=== PATIENT | female | born 1995 ===

== ENCOUNTER 2017-01-25 11:39 | Emergency (ER) | payer SELFPAY ==
[2017-01-25 11:56] VITALS: RESP 18; TEMP 98
[2017-01-25] MEDS ORDERED: Sodium Chloride 0.9% 1,000 ML IV STA (12:34)
--- NOTE | 2017-01-25 12:37 | ED PDOC ---
HPI: Female Pain Time Seen by Provider: 01/25/17 12:35 Chief Complaint (Nursing): Female Genitourinary Chief Complaint (Provider): abdominal pain/headache History Per: Patient (21 y/o female A1 Approximately 16 week gestation here with complaint of vomiting x 3 days now associated with abdominal pain and headache x 1 day. Denies any fevers/dysuria. Notes pink tinged vaginal discharge. Patient has been prescribed unisom/vit B12 without relief of vomiting.) Past Medical History Reviewed: Historical Data, Nursing Documentation, Vital Signs Vital Signs: Last Vital Signs Temp 98 F 01/25/17 11:54 Pulse 88 01/25/17 11:54 Resp 18 01/25/17 11:54 BP 112/70 01/25/17 11:54 Pulse Ox 99 01/25/17 11:54 - Medical History PMH: Asthma - Surgical History Surgical History: Appendectomy - Family History Family History: States: No Known Family Hx - Home Medications Home Medications: Ambulatory Orders Medication Instructions Recorded Nitrofurantoin Macrocrystals 100 mg PO BID #14 cap 11/21/16 [Macrobid] Metoclopramide HCl [Reglan] 10 mg PO Q8 PRN #10 tablet 01/25/17 - Allergies Allergies/Adverse Reactions: Allergies Allergy/AdvReac Type Severity Reaction Status Date / Time No Known Allergies Allergy Verified 01/25/17 11:54 Review of Systems ROS Statement: Except As Marked, All Systems Reviewed And Found Negative Gastrointestinal: Positive for: Vomiting, Abdominal Pain Physical Exam - Reviewed Nursing Documentation Reviewed: Yes Vital Signs Reviewed: Yes - Physical Exam Appears: Positive for: Well, Non-toxic, No Acute Distress Head Exam: Positive for: ATRAUMATIC, NORMAL INSPECTION, NORMOCEPHALIC Skin: Positive for: Normal Color, Warm, DRY Eye Exam: Positive for: EOMI, Normal appearance, PERRL ENT: Positive for: Normal ENT Inspection Neck: Positive for: Normal, Painless ROM Cardiovascular/Chest: Positive for: Regular Rate, Rhythm Respiratory: Positive for: CNT, Normal Breath Sounds Gastrointestinal/Abdominal: Positive for: Normal Exam, Bowel Sounds, Soft Pelvic Exam: Positive for: Other (Cervix closed. No blood noted in vaginal canal.) Back: Positive for: Normal Inspection Extremity: Positive for: Normal ROM Neurologic/Psych: Positive for: Alert, Oriented - Laboratory Results Result Diagrams: 01/25/17 12:35 01/25/17 12:35 - ECG O2 Sat by Pulse Oximetry: 99 - Progress ED Course And Treament: zofran 4 mg iv x 1 dose reglan 10 mg iv x 1 dose NS 1 liter wide open D51/2 NS 500 ml per hour x 1 liter US: Impression: Single living fetus with a composite sonographic age of 16 weeks 2 days. Estimated heart rate 149.2 beats per min. Advise an outpatient anomaly screen at 16-18 weeks gestational age. Disposition - Clinical Impression Clinical Impression: Hyperemesis gravidarum - Patient ED Disposition Is Patient to be Admitted: No - Disposition Disposition: Routine/Home Disposition Time: 17:55 Condition: FAIR Prescriptions: Metoclopramide HCl [Reglan] 10 mg PO Q8 PRN #10 tablet PRN Reason: Nausea/Vomiting Instructions: Hyperemesis Gravidarum (ED) Forms: [facility] ED School/Work Excuse Print Language: AZERBAIJANI
[2017-01-25 12:45] LABS: BASO % 0.4 % (0.0-2.0); EOS # 0.1 K/uL (0.0-0.7); EOS % 0.5 % (0.0-4.0); HEMATOCRIT 37.5 % (34.0-47.0); LYMPH % 18.7 % (20.0-40.0); MEAN CELL VOLUME 82.3 fl (81.0-99.0); MEAN CORPUSCULAR HEMOGLOBIN 29.2 pg (27.0-31.0); MEAN CORPUSCULAR HGB CONC 35.5 g/dL (33.0-37.0); MEAN PLATELET VOLUME 9.5 fl (7.2-11.7); MONO # 0.4 K/uL (0.0-0.8); NEUT # 8.2 K/uL (1.8-7.0); NEUT % 76.4 % (50.0-75.0); NRBC % 0.1 % (0.0-0.0); RED CELL DISTRIBUTION WIDTH 12.9 % (11.5-14.5); WHITE BLOOD COUNT 10.8 K/uL (4.8-10.8)
[2017-01-25] MEDS ORDERED: Dextrose 5%/0.45% NS 1,000 ML IV SCH (12:45)
[2017-01-25 13:11] LABS: ALKALINE PHOSPHATASE 64 U/L (38-126); ALT/SGPT 27 U/L (9-52); AST/SGOT 29 U/L (14-36); BILIRUBIN,TOTAL 0.6 mg/dl (0.2-1.3); BLOOD UREA NITROGEN 8 mg/dl (7-17); CALCIUM 10.1 mg/dL (8.4-10.2); CARBON DIOXIDE 23 mmol/L (22-30); CHLORIDE 103 mmol/L (98-107); GFR AFRICAN-AMERICAN > 60; GLUCOSE,RANDOM 84 mg/dL (65-105); POTASSIUM 3.7 MMOL/L (3.6-5.0); SODIUM 142 mmol/l (132-148); TOTAL PROTEIN 8.2 G/DL (6.3-8.2)
--- NOTE | 2017-01-25 16:39 | US ---
OB , limited Comparison: Ob transvaginal ultrasound performed 11/21/16 Technique: Real-time ultrasound was performed through the pelvis. Findings: There is a single living fetus in variable presentation. Anterior placenta. The placenta is not previa. Bilateral ovaries are not identified. There are no adnexal masses or cysts evident. Cervix length measures approximately 4.2 cm. Measurements and calculations: Fetus has a composite sonographic age of 16 weeks 2 days. This calculation is based on the biparietal diameter, head circumference, abdominal circumference, and femur length. Estimated heart rate 149.2 beats per min. Impression: Single living fetus with a composite sonographic age of 16 weeks 2 days. Estimated heart rate 149.2 beats per min. Advise an outpatient anomaly screen at 16-18 weeks gestational age.
[2017-01-25 18:21] VITALS: BP 114/60; PULSE 85; O2SAT 100
== END 2017-01-25 18:21 | disposition home or self-care (01) ==
LOC: H.ER 11:39
DX: O21.0 Mild hyperemesis gravidarum (principal); R10.9 Unspecified abdominal pain; Z3A.16 16 weeks gestation of pregnancy; R51 Headache; J45.909 Unspecified asthma, uncomplicated

== ENCOUNTER → 2017-03-20 | Emergency (ER) | payer SELFPAY ==
[2017-03-21 00:42] VITALS: BMI 31.5
--- NOTE | 2017-03-21 02:21 | OBHP ---
Datetime: 03/21/2017 02:16 IP Adm Impression: , intrauterine ; No Active Labor; Intact Membranes IP Admit Plan: Observation/Evaluation Admit Comment, IP Provider: 22-year-old at 23 weeks and 6 days gestational age presents to the ED complaining of leakage of fluids. Patient denies any contractions or vaginal bleeding. Patient reports good movement. Otherwise, patient without complaints. Past medical history asthma Past surgical history none Medications vitamins No known drug allergies Obstetrical history normal spontaneous vaginal delivery 1, spontaneous loss of at 19 w eeks Social history no tobacco, no alcohol, no drugs Physical exam: Deferred physical exam findings Assessment: 22-year-old 0-1 at 23 weeks gestational age. No evidence on physical exam of rupture of memb ranes. No evidence of labor at this time. Maternal well-being and well-being reassuring at this time. Plan: Check ultrasound for AMANDA and cervical length. If ultrasound normal, plan to discharge home. Pelvic Type - PN: Adequate Extremities - PN: Normal Abdomen - PN: Normal Back - PN: Normal Breast - PN: Normal Lungs - PN: Normal Heart - PN: Normal Thyroid - PN: Normal Neurologic - PN: Normal HEENT - PN: Normal General - PN: Normal FHR - Baseline A Provider: 130s-140s Membranes, Provider: Intact Contraction Comments Provider: none Comments, ACOG Physical Exam: Cervix long, closed, posterior. No fluid, blood, discharge. Pool Provider: Negative EGA AdmitDate IP: 23.6 IP Chief Complaint: Suspected ruptured membranes NICHD Variability Prov Fetus A: Moderate 6-25bpm NICHD Decel Fetus A IP Provider: None Dilatation, Provider: 0 Effacement, Provider: 0 Station, Provider: -4 Genitourinary Exam: Normal DTRs - PN: Normal
--- NOTE | 2017-03-22 00:16 | US ---
EXAM: US After First Trimester, Transabdominal CLINICAL HISTORY: 22 years old, female; Signs and symptoms; Lmp or gestational age (in weeks): Lmp 10/05/2016; Other: Pt felt like water broke; ; abdominal pain and cramping Additional info: Basic ob sono with amanda and cervical length TECHNIQUE: Real-time transabdominal obstetrical ultrasound of the maternal pelvis and a second or third trimester with image documentation. EXAM DATE/TIME: 03/21/2017 12:45 AM COMPARISON: Prior images are not available for review. FINDINGS: Fetus: There is a single intrauterine gestation in variable presentation. There is a heart rate of 134 beats per minute. Placenta: Placenta is anterior. There is no previa. There is a three-vessel cord. Amniotic fluid: Amnionic fluid volume appears normal. Amniotic fluid index measures 13.39 cm. Anatomy: Anatomic survey was not performed BIOMETRICS Gestational age by US: 23 weeks 2 days EFW: 559 g BPD: 5.85 cm, 24 weeks 0 days HC: 20.42 cm, 22 weeks 4 days AC: 17.20 cm, 22 weeks 1 day FL: 4.34 cm, 24 weeks 2 days MATERNAL: Cervix: Cervix is closed. Cervix measures approximately 5.3 cm. IMPRESSION: 23 week 2 day single variable position fetus, estimated date of delivery 07/16/17; normal amniotic fluid volume and AMANDA; closed cervix
== END | disposition home or self-care (01) ==
LOC: H.EROB2 23:41
DX: O47.02 False labor before 37 completed weeks of gestation, second trimester (principal); Z3A.24 24 weeks gestation of pregnancy; O09.292 Supervision of pregnancy with other poor reproductive or obstetric history, second trimester

== ENCOUNTER 2017-04-25 21:26 | Emergency (ER) | payer SELFPAY ==
[2017-04-25 18:07] VITALS: BMI 31.7
[2017-04-25 18:37] LABS: SQUAMOUS EPITHIAL 12 /hpf (0-5); URINE BACTERIA RARE (<OCC); URINE BILIRUBIN NEGATIVE (NEGATIVE); URINE BLOOD NEGATIVE (NEGATIVE); URINE CLARITY CLOUDY (Clear); URINE COLOR YELLOW (YELLOW); URINE GLUCOSE (UA) NEG (Normal); URINE LEUKOCYTE ESTERASE SMALL Leu/uL (Negative); URINE NITRATE NEGATIVE (NEGATIVE); URINE PROTEIN 30 mg/dL (NEGATIVE); URINE UROBILINOGEN 0.2-1.0 mg/dL (0.2-1.0)
--- NOTE | 2017-04-25 20:18 | US ---
EXAM: US Biophysical Profile Without Non-Stress Testing CLINICAL HISTORY: 22 years old, female; Signs and symptoms; Other: As per pt. Decrease movement; ; Additional info: Decrease movements. Iup 28.6 weeks TECHNIQUE: Real-time ultrasound of the maternal pelvis for biophysical profile evaluation with image documentation. EXAM DATE/TIME: 04/25/2017 6:08 PM COMPARISON: No relevant prior studies available. FINDINGS: Single fetus identified, cephalic position. Sonographic gestational age was not calculated. The given gestational age is reportedly 28 weeks, 6 days. heart motion visualized, at 140 beats/min. The anatomy was not assessed on this exam. Anterior location of the placenta. AMANDA is 14.2 cm, which is between the 5th and 95th percentile for the given gestational age. Cervical length is 4.6 cm (normal greater than 3 cm), measured transabdominally. Biophysical profile score was 8/8, with 2 points given for tone, 2 points given for movement, 2 points given for breathing, and 2 points given for amniotic fluid. IMPRESSION: Intrauterine with heart motion. No acute abnormality identified on this limited exam. Biophysical profile score of 8/8. See above for remaining findings.
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
[~2017-04-25 21:26] MED LIST: Lactated Ringer's 1,000 ML IV SCH
[2017-04-25 21:48] VITALS: BP 100/60; PULSE 74; RESP 18; TEMP 99; O2SAT 99
--- NOTE | 2017-04-25 22:02 | ED PDOC ---
HPI: CCC, URI, Sore Throat Time Seen by Provider: 04/25/17 21:49 Chief Complaint (Nursing): ENT Problem Chief Complaint (Provider): Right ear ache History Per: Patient History/Exam Limitations: no limitations Onset/Duration Of Symptoms: Hrs Additional Complaint(s): Patient is a 22 year old female presenting to the emergency department for right ear ache that developed today. Denies headache, fever, sore throat, headache, vaginal bleeding and pelvic pain. Of note, patient is currently and was evaluated in OB ED prior to coming to main ED where she was given a dose of Tylenol for her pain. PCP: none provided. Past Medical History Reviewed: Historical Data, Nursing Documentation, Vital Signs Vital Signs: Last Vital Signs Temp 99 F 04/25/17 21:43 Pulse 74 04/25/17 21:43 Resp 18 04/25/17 21:43 BP 100/60 04/25/17 21:43 Pulse Ox 99 04/25/17 22:14 - Medical History PMH: Asthma - Surgical History Surgical History: Appendectomy - Family History Family History: States: Unknown Family Hx - Social History Current smoker - smoking cessation education provided: No Alcohol: None Drugs: Denies - Home Medications Home Medications: Ambulatory Orders Medication Instructions Recorded Amoxicillin [Amoxil 500 mg Cap] 500 mg PO Q8 #30 cap 04/25/17 123/Iron/Folic/Omeg3s 1 tab PO DAILY 04/25/17 [One-A-Day 1 Dha Sfgl] - Allergies Allergies/Adverse Reactions: Allergies Allergy/AdvReac Type Severity Reaction Status Date / Time No Known Allergies Allergy Verified 01/25/17 11:54 Review of Systems ROS Statement: Except As Marked, All Systems Reviewed And Found Negative Constitutional: Negative for: Fever ENT: Positive for: Ear Pain (Right ear ache). Negative for: Other (Sore throat) Genitourinary Female: Negative for: Vaginal Bleeding, Pelvic Pain Neurological: Negative for: Headache Physical Exam - Reviewed Nursing Documentation Reviewed: Yes Vital Signs Reviewed: Yes - Physical Exam Appears: Positive for: Well, Non-toxic, No Acute Distress Head Exam: Positive for: ATRAUMATIC, NORMAL INSPECTION, NORMOCEPHALIC Skin: Positive for: Normal Color, Warm, Dry ENT: Positive for: TM Is/Are (Right TM is erythematous and bulging. Left TM is not erythematous or bulging.). Negative for: Pharyngeal Erythema, Tonsillar Exudate, Tonsillar Swelling Neurologic/Psych: Positive for: Alert, Oriented - ECG O2 Sat by Pulse Oximetry: 99 (RA) Pulse Ox Interpretation: Normal Medical Decision Making Medical Decision Makin:02 Initial Impression: Ear ache Clinical Impression: Otitis media Scribe Attestation: Documented by Evonne Baxter, acting as a scribe for Kris Coleman PA-C. Provider Scribe Attestation: All medical record entries made by the Scribe were at my direction and personally dictated by me. I have reviewed the chart and agree that the record accurately reflects my personal performance of the history, physical exam, medical decision making, and the department course for this patient. I have also personally directed, reviewed, and agree with the discharge instructions and disposition. Disposition - Clinical Impression Clinical Impression: Otitis media - Patient ED Disposition Is Patient to be Admitted: No Doctor Will See Patient In The: Office Counseled Patient/Family Regarding: Diagnosis - Disposition Referrals: Robert Hartmann MD [Primary Care Provider] - Disposition: Routine/Home Disposition Time: 21:30 Condition: STABLE Prescriptions: Amoxicillin [Amoxil 500 mg Cap] 500 mg PO Q8 #30 cap Instructions: Otitis Media (ED) Print Language: KITTITIAN
== END 2017-04-25 21:56 | disposition home or self-care (01) ==
LOC: H.EROB 21:26 → H.ER 21:26
DX: O26.93 Pregnancy related conditions, unspecified, third trimester (principal); H66.92 Otitis media, unspecified, left ear; Z3A.28 28 weeks gestation of pregnancy; Z62.810 Personal history of physical and sexual abuse in childhood

== ENCOUNTER 2017-07-02 14:26 | Emergency (ER) | payer SELFPAY ==
[2017-07-02 14:26] VITALS: BMI 31.7
--- NOTE | 2017-07-02 15:29 | ED PDOC ---
Syncope/Near Syncope/Dizziness Time Seen by Provider: 07/02/17 15:05 Chief Complaint (Nursing): Dizziness/Lightheaded Chief Complaint (Provider): dizziness, decreased movement History Per: Patient History/Exam Limitations: no limitations Activity At Onset Of Symptoms: Standing Associated Symptoms Preceding Syncopal Episode: Lightheadedness Seizure Or Post-ictal Symptoms: None Possible Causative Factor(s): Lightheaded W/Standing Fall Associated With With Symptoms: No Additional Complaint(s): 22yo female 38wks c/o dizziness, mild blurry vision along with mild contractions and decreased movement today. States was seen at clinic yesterday and FHR was low? (poor historian). Symptoms associated w/ mild nausea, one episode vomiting. Denies vaginal bleeding, chest pain or SOB. - Symptoms Of CVA Recent Aspirin Use: No Current Coumadin Use?: No Recent Head Trauma: No Past Medical History Reviewed: Historical Data, Nursing Documentation, Vital Signs Vital Signs: Last Vital Signs Temp 98 F 07/02/17 14:27 Pulse 95 H 07/02/17 14:27 Resp 18 07/02/17 14:27 BP 113/71 07/02/17 14:27 Pulse Ox 99 07/02/17 14:27 - Medical History PMH: Asthma - Surgical History Surgical History: Appendectomy - Family History Family History: States: Unknown Family Hx - Social History Current smoker - smoking cessation education provided: No - Home Medications Home Medications: Ambulatory Orders Medication Instructions Recorded Amoxicillin [Amoxil 500 mg Cap] 500 mg PO Q8 #30 cap 04/25/17 123/Iron/Folic/Omeg3s 1 tab PO DAILY 04/25/17 [One-A-Day 1 Dha Sfgl] - Allergies Allergies/Adverse Reactions: Allergies Allergy/AdvReac Type Severity Reaction Status Date / Time No Known Allergies Allergy Verified 01/25/17 11:54 Review of Systems ROS Statement: Except As Marked, All Systems Reviewed And Found Negative Constitutional: Negative for: Fever, Chills Respiratory: Negative for: Cough, Shortness of Breath Gastrointestinal: Positive for: Nausea, Abdominal Pain Genitourinary Female: Negative for: Dysuria, Frequency Musculoskeletal: Negative for: Neck Pain, Shoulder Pain Skin: Negative for: Rash, Lesions, Jaundice Neurological: Positive for: Headache, Dizziness. Negative for: Weakness, Numbness, Change in Speech Psych: Negative for: Anxiety Physical Exam - Reviewed Nursing Documentation Reviewed: Yes Vital Signs Reviewed: Yes - Physical Exam Appears: Positive for: Well, Non-toxic, No Acute Distress Head Exam: Positive for: ATRAUMATIC, NORMAL INSPECTION, NORMOCEPHALIC Skin: Positive for: Normal Color, Warm, DRY Eye Exam: Positive for: EOMI, Normal appearance, PERRL ENT: Positive for: Normal ENT Inspection Neck: Positive for: Normal, Painless ROM Cardiovascular/Chest: Positive for: Regular Rate, Rhythm Respiratory: Positive for: CNT, Normal Breath Sounds Gastrointestinal/Abdominal: Positive for: Bowel Sounds, Soft, Other (term fundus firm, nontender). Negative for: Guarding Back: Positive for: Normal Inspection Extremity: Positive for: Normal ROM Neurologic/Psych: Positive for: Alert, Oriented. Negative for: Motor/Sensory Deficits - ECG O2 Sat by Pulse Oximetry: 99 Medical Decision Making Medical Decision Making: Pt told triage she was dizzy, told provider she had decreased movement, contractions earlier and ?low HR yesterday (unclear). Accucheck and EKG perfoemd. Accucheck 79, juice given. EKG NSR 88pm without ST changes BP stable Pt to be transferred to [facility]. OB partner integration planner paged to inform, RN gave report. Disposition - Clinical Impression Clinical Impression: Dizziness, Decreased movement - Patient ED Disposition Is Patient to be Admitted: Transfer of Care - Disposition Disposition: Transfer of Care Disposition Time: 15:32 Condition: FAIR Forms: [facility] (Bermudian) Handoff Comments: transferred care to [facility]
--- NOTE | 2017-07-02 17:33 | OBHP ---
Datetime: 07/02/2017 17:30 Admit Comment, IP Provider: Verbal report AMANDA 11/BPP8/8 Will discharge home and follow up [facility] nextweek as scheduled Labor instructions pre-eclampsia warning Datetime: 07/02/2017 16:15 IP Adm Impression: Term, intrauterine IP Admit Plan: Observation/Evaluation Pelvic Type - PN: Not Done Extremities - PN: Normal Abdomen - PN: Normal Back - PN: Normal Breast - PN: Not Done Lungs - PN: Normal Heart - PN: Normal Thyroid - PN: Normal Neurologic - PN: Normal HEENT - PN: Normal General - PN: Normal Presentation-Admit: Vertex FHR - Baseline A Provider: 140 Comments, ACOG Physical Exam: ROS Pool Provider: Negative IP Hx Assessment: The History has been Reviewed and is Current EGA AdmitDate IP: 38.4 Vital Signs Provider: Reviewed; Within Normal Limits IP Chief Complaint: Decreased movement NICHD Variability Prov Fetus A: Moderate 6-25bpm NICHD Accel Fetus A IP Provider: 10X10 FHR Category Provider Fetus A: Category I NICHD Decel Fetus A IP Provider: None Genitourinary Exam: Normal DTRs - PN: Normal
--- NOTE | 2017-07-02 18:45 | US ---
PROCEDURE: LIMITED OBSTETRIC ULTRASOUND, BIOPHYSICAL PROFILE. HISTORY: decreased FM COMPARISON: biophysical profile dated 04/25/2017. TECHNIQUE: Transabdominal sonography of was limited 2 biophysical profile evaluation. No biometry was obtained nor anatomical survey. FINDINGS: Biophysical score is 8. 2.2 breathing movements, 2 points for movements, 2 points for tones, and 2 points for amniotic fluid volume. AMANDA measures 11.2 cm. Pubic arch is greater 1 are 45.32 beats per minute. position is cephalic. The placenta appears anterior once again. No gross placental abruption is identified at this time. Cervical length appears 3.4 cm with closed internal os. IMPRESSION: A single viable intrauterine gestation is identified with a biophysical profile score 8/8 with details noted above.
[2017-07-02 23:34] VITALS: BP 106/63; PULSE 88; RESP 20; TEMP 98.6
--- NOTE | 2017-07-03 03:18 | OBHP ---
Datetime: 07/02/2017 16:15 Admit Comment, IP Provider: 22yo IUP at 37+w CF patient sent from ER after being evaluated for dizziness. Stated less FM few hours. No CTX; no VB; No SROM PNC: [facility] EDC Jul 12/chart rev'd PMH: Asthma PSH: appendectomy NKA POBH: spont Ab x 1; x 1 PGYNH: denies STD A: IUp at term decreased FM PLAN: po fluids/check NST/BPP Comments, ACOG Physical Exam: ROS: General: no weakness; no fatigue HEENT: no LONG; no visual dist CV: no palpitations; no no CP GI: no N/V no diarhea : no F/U/D MS: No joint pain EGA AdmitDate IP: 38.4
[2017-07-03 07:31] VITALS: O2SAT 99
--- NOTE | 2017-07-03 12:09 | CARD ---
APPROVED REPORT EKG Measurement Heart [id number] <Conclusion> Normal sinus rhythm Normal ECG
== END 2017-07-02 17:40 | disposition home or self-care (01) ==
LOC: H.EROB2 14:26 → H.EROB 15:51 → H.EROB2 17:40
DX: O47.1 False labor at or after 37 completed weeks of gestation (principal); Z3A.38 38 weeks gestation of pregnancy

== ENCOUNTER 2017-07-11 22:29 | Emergency (ER) | payer SELFPAY ==
[2017-07-11 23:04] VITALS: BMI 35.3
[2017-07-12 07:07] VITALS: BP 110/72; PULSE 89; RESP 16; TEMP 98.6
--- NOTE | 2017-07-12 07:11 | OBHP ---
Datetime: 07/11/2017 23:02 IP Adm Impression: Term, intrauterine IP Admit Plan: Observation/Evaluation; Discharge home Admit Comment, IP Provider: 22 yo F, , IUP @ 39.6 confirmed by u/s at 6.2w presents to [facility] w ith contractions every 6-8 minutes + movement, no vaginal bleeding, no loss of fluid, sexual activity 1 day ago. Denies current or recent HSV outbreak (has hx positive HSV 1 and 2 IgG) OBHx: 1 NVD, 1 SAB. 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 Surg hx: appendectomy Soc hx: denies tobacco, alcohol drug use. Meds: acyclovir Allergies: NKDA care: [facility], Dr. Reagan Last visit: 07/07 ROS: no CP, SOB, no dizziness, no burning with urination, no headache PE: BP: 120/72 Gen: AAOx3, no acute distress CV: S1/S2, RRR Resp: clear to auscultation bilaterally, normal respiratory effort Abd: gravid, +BS Ext: no edema, no pain on palpation Pelvic: cervix 1-2cm dilated, 0% effaced. -4 station. Assessment: 22 yo @ 39.6w, not in active labor at this time Plan: reevaluate in 1 hr Re-eval @ 00:05 -pelvic exam remains unchanged. -monitor for frequency of contractions 00:45 -contractions q6 minutes, pt appears more uncomfortable -re-eval in 2 hrs 02:55 -pt contractions more spaced out on monitor, up to 10 minutes apart -exam remains grossly unchanged; 1-2 cm, 0-10% effaced, -4 station -patient d/c home and given [facility] precautions; verbalized understanding -discussed with Dr. Lisa [email or web address] Os attending addendum: Patient seen and examined by me the assessment and plan. Labor precautions. Follow-up OB appointment as scheduled. Pelvic Type - PN: Adequate Extremities - PN: Normal Abdomen - PN: Normal Back - PN: Not Done Breast - PN: Not Done Lungs - PN: Normal Heart - PN: Normal Thyroid - PN: Not Done Neurologic - PN: Normal HEENT - PN: Normal General - PN: Normal FHR - Baseline A Provider: 164 Comments, ACOG Physical Exam: no vulvar or labial HSV lesions visualized on exam IP Hx Assessment: The History has been Reviewed and is Current EGA AdmitDate IP: 39.6 Vital Signs Provider: Reviewed; Within Normal Limits IP Chief Complaint: Uterine contractions NICHD Variability Prov Fetus A: Moderate 6-25bpm NICHD Accel Fetus A IP Provider: [id number] FHR Category Provider Fetus A: Category I NICHD Decel Fetus A IP Provider: None Dilatation, Provider: 2 Effacement, Provider: 0 Station, Provider: -4 Genitourinary Exam: Normal DTRs - PN: Not Done
== END 2017-07-12 02:50 | disposition home or self-care (01) ==
LOC: H.EROB2 22:29
DX: O47.1 False labor at or after 37 completed weeks of gestation (principal); Z3A.39 39 weeks gestation of pregnancy

== ENCOUNTER 2017-07-12 11:21 | Inpatient (IN) | payer MEDICAID, SELFPAY ==
[2017-07-11 23:04] VITALS: BMI 35.3
[2017-07-12] MEDS: Lactated Ringer's 1,000 ML IV SCH ×2 (11:45→12:45)
[2017-07-12] MEDS ORDERED: Lactated Ringer's 1,000 ML IV SCH (12:00)
[2017-07-12] MEDS ORDERED: Oxytocin 30 units/LR 500ML 30 U/500 ML BAG IV SCH (12:00)
[2017-07-12 12:18] LABS: BASO # 0.1 K/uL (0.0-0.2); BASO % 0.9 % (0.0-2.0); EOS # 0.1 K/uL (0.0-0.7); EOS % 0.5 % (0.0-4.0); HEMATOCRIT 35.9 % (34.0-47.0); LYMPH # 3.9 K/uL (1.0-4.3); LYMPH % 26.7 % (20.0-40.0); MEAN CELL VOLUME 81.9 fl (81.0-99.0); MEAN CORPUSCULAR HEMOGLOBIN 27.3 pg (27.0-31.0); MEAN CORPUSCULAR HGB CONC 33.3 g/dL (33.0-37.0); MEAN PLATELET VOLUME 11.2 fl (7.2-11.7); MONO # 0.8 K/uL (0.0-0.8); MONO % 5.8 % (0.0-10.0); NEUT # 9.6 K/uL (1.8-7.0); NEUT % 66.1 % (50.0-75.0); NRBC % 0.3 % (0.0-0.0); RED CELL DISTRIBUTION WIDTH 14.8 % (11.5-14.5); WHITE BLOOD COUNT 14.6 K/uL (4.8-10.8)
[2017-07-12] MEDS ORDERED: Lidocaine 1% Inj (20ml) ONE (12:23)
[2017-07-12] MEDS ORDERED: Benzocaine/Menthol SPRAY TOP PRN ×2 (12:41→15:36)
[2017-07-12] MEDS ORDERED: Oxycodone/Acetaminophen 5/325 mg Tab PO PRN ×4 (12:41→15:36)
--- NOTE | 2017-07-12 12:48 | OBDS ---
MATERNAL INFORMATION Provider Comments: of live male over intact perineum, in MIKE presentation, compound pres entation, followed by shoulders and rest of , mouth and nose suctioned, cord clamped and cut, c ord blood obtained, placenta delivered spontaneously, fundus firm, vaginal laceration repaired with 3 -0 vicry rapide, [id number], pt tolerated procedure well LABOR SUMMARY EDC: 07/12/2017 00:00 No. Babies in Womb: 1 LABOR INFORMATION Onset of Labor: 07/12/2017 10:00 Group B Beta Strep: Negative MEMBRANES Amniotic Fluid Amount: None
--- NOTE | 2017-07-12 14:48 | OBADHP ---
Datetime: 07/11/2017 23:02 Admit Comment, IP Provider: 22 yo F, , IUP @ 39.6 confirmed by u/s at 6.2w presents to [facility] w ith contractions every 6-8 minutes. Contractions started at 7 pm, and she rates them at a 7/10 on onofre n scale. + movement, no vaginal bleeding, no loss of fluid, sexual activity 1 day ago. Denies current or recent HSV outbreak (has hx of positive HSV 1 and 2 IgG). OBHx: 1 NVD, 1 SAB. 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 Surg hx: appendectomy Soc hx: denies tobacco, alcohol drug use. Meds: acyclovir, vitamins Allergies: NKDA care: [facility], Dr. Reagan Last visit: 07/07 labs: unremarkable; GBS neg, HIV neg, RPR neg, Rubella immune, ROS: no CP, SOB, no dizziness, no burning with urination, no headache PE: BP: 120/72 Gen: AAOx3, no acute distress CV: S1/S2, RRR Resp: clear to auscultation bilaterally, normal respiratory effort Abd: gravid, +BS Ext: no edema, no pain on palpation Pelvic: cervix 1-2 cm dilated, Assessment: 22 yo @ 39.6w, not in active labor at this time Plan: reevaluate in 1 hr Re-eval @ 00:05 -pelvic exam unchanged. -monitor for frequency of contractions 02:50 -pt contractions more spaced apart, up to 10 min apart -exam remains grossly unchanged, 1-2cm, 10-20% effacement, -3 to -4 station. -patient d/c home with [facility] precautions; pt and verbalized understanding. -Discussed with Dr. Gonzalez -[email or web address] Addendum by Dr. Izaguirre: Patient evaluated independtly and agree with the above. Patient is a 1 @ 40 wks at 5 cm dilated in labor. Will admit patient, start IVF, CBC, type and screen, CEFM and TO CO Pelvic Type - PN: Adequate Extremities - PN: Normal Abdomen - PN: Normal Back - PN: Not Done Breast - PN: Not Done Lungs - PN: Normal Heart - PN: Normal Thyroid - PN: Not Done Neurologic - PN: Normal HEENT - PN: Normal General - PN: Normal FHR - Baseline A Provider: 164 Comments, ACOG Physical Exam: no vulvar or labial HSV lesions visualized on exam IP Hx Assessment: The History has been Reviewed and is Current Vital Signs Provider: Reviewed; Within Normal Limits IP Chief Complaint: Uterine contractions NICHD Variability Prov Fetus A: Moderate 6-25bpm NICHD Accel Fetus A IP Provider: [id number] FHR Category Provider Fetus A: Category I NICHD Decel Fetus A IP Provider: None Dilatation, Provider: 2 Effacement, Provider: 0 Station, Provider: -4 Genitourinary Exam: Normal DTRs - PN: Not Done EGA AdmitDate IP: 39.6 IP Adm Impression: Term, intrauterine IP Admit Plan: Observation/Evaluation; Discharge home Datetime: 07/02/2017 16:15 Presentation-Admit: Vertex Pool Provider: Negative Datetime: 04/25/2017 18:21 IP Chief Complaint Other: dysuria Membranes, Provider: Intact Contraction Comments Provider: no
[2017-07-12] MEDS ORDERED: Phenaphthazine-PH Test Paper VI ONE (14:51)
[2017-07-12] MEDS ORDERED: Pneumococcal 23-Valent Vaccine IM ONE (19:00)
[2017-07-12] MEDS ORDERED: Influenza Vaccine 18yr & older 0.5 ML/45 MCG SYR IM ONE (19:00)
[2017-07-13 00:15] LABS: BASO # 0.2 K/uL (0.0-0.2); BASO % 1.5 % (0.0-2.0); EOS % 0.3 % (0.0-4.0); HEMATOCRIT 37.6 % (34.0-47.0); LYMPH # 2.8 K/uL (1.0-4.3); LYMPH % 19.2 % (20.0-40.0); MEAN CELL VOLUME 85.7 fl (81.0-99.0); MEAN CORPUSCULAR HEMOGLOBIN 26.7 pg (27.0-31.0); MEAN CORPUSCULAR HGB CONC 31.1 g/dL (33.0-37.0); MEAN PLATELET VOLUME 11.7 fl (7.2-11.7); MONO # 0.7 K/uL (0.0-0.8); MONO % 4.7 % (0.0-10.0); NEUT # 10.8 K/uL (1.8-7.0); NEUT % 74.3 % (50.0-75.0); NRBC % 0.1 % (0.0-0.0); RED CELL DISTRIBUTION WIDTH 15.6 % (11.5-14.5); WHITE BLOOD COUNT 14.6 K/uL (4.8-10.8)
--- NOTE | 2017-07-14 08:05 | OBPPN ---
Datetime: 07/14/2017 06:36 PP Pain Prov: Within normal limits PP Nausea Prov: Denies PP Flatus Prov: No PP BM Prov: No PP Heart Prov: Normal PP Lungs Prov: Normal PP Abdomen/Uterus Prov: Normal PP Lochia Prov: Normal PP Extremities Prov: Normal PP Plan Prov: Discharge PP Progress Note Prov: 22 yo now , post day 2. Seen and examined at bedside. Pt report s uneventful overnight; reports mild-moderate pelvic pain that is controlled by medication. She has b een OOB and ambulating to the bathroom and around the room without difficulty or dizziness. Has been tolerating PO diet well. Voiding freely, states she has not passed gas or had BM yet. Lochia like men ses. She is feeding baby via breast. Denies fevers, chills, nausea/vomiting/diarrhea, chest pain/jett rtness of breath, calf pain, lightheadedness. PE: GEN: A_O, no acute distress, feeding baby in bed Lung: clear to auscultation bilaterally, normal respiratory effort CVS: S1/S2+, RRR Abd: +BS, firm fundus below umbilicus. EXT: no edema, negative Gabi's, calves non-tender. Assessment: 22 yo F, s/p NVD on 07/12/17, doing well on PPD2. Plan: Discharge. Addendum: Pt did have a BM this morning. Notified by RN at 07:25. -[email or web address] OB Hospitalist Addendum: Pt seen and examined by me. Sunita w/ above. PPD2 s/p , doing well, br east feeding. Discharge home today. (ES) Vital Signs Provider PP: Reviewed Datetime: 07/13/2017 07:36 PP Impression Prov: Normal progression IP PP Procedures: None
--- NOTE | 2017-07-14 08:07 | OBDCSUM ---
Datetime: 07/14/2017 08:04 Follow up at, Provider: Clinic Disch Instr Activity: Normal activity; May Shower Disch Instr Diet: Regular Discharge Instructions, Provider: Routine instructions given Discharge Diagnosis, Provider: Term Delivered Discharge Time: 07/14/2017 08:04 Follow up in weeks, Provider: 6 weeks Disch Activity Restrictions: No exercising; No lifting; No sexual activity; Nothing in vagina - Inte rcourse, tampons, douche Datetime: 07/12/2017 02:50 Disch Instr Activity: Normal activity; May be up to bathroom; May be up for meals; May Shower Discharge Instructions, Provider: Routine instructions given Discharge Diagnosis, Provider: Term Delivered Contraception discussed, Prov: No Disch Activity Restrictions: No lifting; Minimize stair-climbing; No sexual activity; Nothing in vag toni - Brenton, tampons, douche Discharge Comment, Provider: 22 yo F, now s/p NVD on 07/12/17 of term male at 40 weeks gestat ional age. Patient doing well on PPD2. Discharge instructions: 1.Encourage and ambulation 2. PNV 1 tab PO/day 3. Ibuprofen 600 mg 1 tab PRN if moderate pain. 4. Ambulate with caution, nothing per vagina, no heavy lifting, avoid stairs. If excessive bleedin g, or fever without relief from tylenol, go to ED. 5.F/u at [facility] in 4-6 weeks for patient, and 2-3 days for baby. Zeus Loving PGY1
[2017-07-14 18:43] VITALS: BP 97/70; PULSE 101; RESP 18; TEMP 98.3; O2SAT 97
== END 2017-07-14 14:10 | disposition home or self-care (01) | DRG 373 ==
LOC: H.EROB2 11:21 → H.L&D 11:52 → H.OB/GYN 15:30
PROVIDERS: ADMIT Obstetrics & Gynecology; ATTEND Obstetrics & Gynecology
PROC: 10E0XZZ Delivery of Products of Conception, External Approach (ICD-10-PCS; principal; 2017-07-12)
PROC: 0UQGXZZ Repair Vagina, External Approach (ICD-10-PCS; 2017-07-12)
PROC: 4A1HXCZ Monitoring of Products of Conception, Cardiac Rate, External Approach (ICD-10-PCS; 2017-07-12)
DX: O62.3 Precipitate labor (principal); O71.4 Obstetric high vaginal laceration alone; Z37.0 Single live birth; Z3A.39 39 weeks gestation of pregnancy; O32.6XX0 Maternal care for compound presentation, not applicable or unspecified

== ENCOUNTER 2018-06-06 14:52 | Inpatient (IN) | payer OTHER, SELFPAY ==
[2018-06-06 14:53] VITALS: BMI 35.3
[2018-06-06 15:05] VITALS: O2SAT 100
[2018-06-06] MEDS ORDERED: Sodium Chloride 0.9% 1,000 ML IV STA (15:22)
[2018-06-06 15:42] LABS: BASO % 0.4 % (0.0-2.0); EOS # 0.1 K/uL (0.0-0.7); EOS % 1.4 % (0.0-4.0); HEMOGLOBIN 14.9 g/dL (12.0-16.0); LYMPH # 3.1 K/uL (1.0-4.3); MEAN CORPUSCULAR HEMOGLOBIN 29.3 pg (27.0-31.0); MEAN CORPUSCULAR HGB CONC 34.5 g/dL (33.0-37.0); MEAN PLATELET VOLUME 9.7 fl (7.2-11.7); MONO # 0.6 K/uL (0.0-0.8); MONO % 6.9 % (0.0-10.0); NEUT # 4.8 K/uL (1.8-7.0); NEUT % 55.3 % (50.0-75.0); NRBC % 0.1 % (0.0-0.0); RBC 5.06 Mil/uL (3.80-5.20); RED CELL DISTRIBUTION WIDTH 13.5 % (11.5-14.5); WHITE BLOOD COUNT 8.7 K/uL (4.8-10.8)
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
[2018-06-06 15:46] LABS: INR 1.2; PROTHROMBIN TIME 13.5 Seconds (9.8-13.1)
[2018-06-06 15:48] LABS: PARTIAL THROMBOPLASTIN TIME 45.2 Seconds (25.6-37.1)
[2018-06-06 16:02] LABS: ALB/GLOB RATIO 1.1 (1.0-2.1); ALBUMIN 4.4 g/dL (3.5-5.0); CALCIUM 9.4 mg/dL (8.4-10.2); GFR NON-AFRICAN AMERICAN > 60; LIPASE 131 U/L (23-300)
[2018-06-06 16:03] LABS: ACETAMINOPHEN < 10.0 ug/ml (10.0-30.0); SALICYLATE < 1.0 mg/dl
[2018-06-06 16:05] LABS: ALT/SGPT 92 U/L (9-52); AST/SGOT 65 U/L (14-36); BLOOD UREA NITROGEN 11 mg/dl (7-17)
[2018-06-06 16:20] LABS: BARBITURATES, UR NEGATIVE (NEGATIVE); BENZODIAZEPINES, UR NEGATIVE (NEGATIVE); OPIATES, UR NEGATIVE (NEGATIVE); PHENCYCLIDINE, UR NEGATIVE (NEGATIVE)
[2018-06-06] MEDS ORDERED: Alum-Mag Hydrox-Simethicone Susp (30 mL) PO PRN (21:45)
[2018-06-06 22:05] VITALS: RESP 18
--- NOTE | 2018-06-06 22:23 | PCM.BM ---
<Suzette Rojas Shania - Last Filed: 06/06/18 22:21> Treatment Plan Problems - Problems identified on initial assessmt Suicidal Ideation Date Initiated: 06/06/18 Time Initiated: 22:22 Assessment reference: NA Status: Active Self Harm Date Initiated: 06/06/18 Time Initiated: 22:23 Assessment reference: NA Status: Active Hopeless/Helpless Date Initiated: 06/06/18 Time Initiated: 22:23 Assessment reference: NA Status: Active Treatment assets and liabiliti Patient Assests: cooperative, self-reliant, ADL independent, physically healthy , good support system, negotiates basic needs Patient Liabilities: language/speech - Milieu Protocol Maintain good personal hygiene: daily Encourage regular showers, every shift Remind patient to perform daily oral care Conduct patient checks and document Observation sheet: Q15 minutes Maintain personal safety: every shift Educate patient to report safety concerns to staff, every shift Monitor environment for contraband/sharps Medication safety: Monitor for expected outcome, potential side effects: every shift, Assess barriers to learning: every shift, Assess readiness for medication education: every shift <Shun Muñoz - Last Filed: 06/09/18 08:34> - Diagnosis (1) Depression Status: Acute Interventions: psychotherapy, pharmacotherapy 06/09/18 08:34 <Samm Hand - Last Filed: 06/09/18 17:02> Family Contact Family involvement: Family/SO is involved Family contact: Patient agrees to contact, Family has been contacted by patient , Telephone contact initiated by staff Family contact name: Fernando Burns Family contacted how many times per week?: 3 Family contact comment: Poultry Dressing Worker placed t/c to pt's , Fernando Burns ([phone]) and advised that pt is scheduled for discharge tomorrow. Pt's reported having no concerns with pt's discharge. Pt's verbalized that he feels comfortable with pt being discharged tomorrow and does not believe pt is a danger to herself or the children at this time. Pt's reported that he feels pt is "much better" in the context that she is more open with him and has confined in him. Pt's reported that he will garbage pick up man pt in the AM. Poultry Dressing Worker informed Samm REDDY of the above. - Goals for Treatment Patient goals for treatment: Pt did not identify any specific goals for treatment, but reported that she wanted to leave the unit. Discharge/Continuing Care - Education Needs Education Needs: Family Medication, Family Diagnosis/Disease Process, Family Coping Skills, Family Aftercare Safety Plan, Patient Medication, Patient Diagnosis/Disease Process, Patient Coping Skills, Patient Aftercare Safety Plan - Discharge Discharge Criteria: Tolerates medication w/o severe side effects, Free of Suicidal thoughts, Normal sleep pattern Discharge to:: Home, With Family - Treatment Team Participation Patient/Family/SO Statement: 06/09/18 17:01 Pt was seen in treatment team on 06/08/18. Pt was tearful and expressed that attempt was impulsive and that she would like to be discharged as her 10 month old is sick, and her 7 year old son begins school on 06/09/18. Discussed with Family/SO: Yes Was Patient/Family/SO present at Treatment Team Meeting: Yes
[2018-06-07] MEDS ORDERED: Pneumococcal 23-Valent Vaccine IM ONE (01:11)
[2018-06-07 08:51] LABS: T4 10.9 ug/dl (5.5-11.0)
--- NOTE | 2018-06-07 09:01 | CARD ---
APPROVED REPORT Date of service: 06/06/2018 <Conclusion> Normal sinus rhythm with sinus arrhythmia Normal ECG
[2018-06-07] MEDS ORDERED: Albuterol 0.083% Inhal Sol (2.5 mg/3 mL) UD INH PRN (15:32)
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
--- NOTE | 2018-06-07 15:43 | CP.PCM.CON ---
<Edwina Reagan - Last Filed: 06/07/18 16:50> History of Present Illness - History of Present Illness History of Present Illness: 23 y/o F with PMHx of Intermittent Asthma presented to the ED for intentional overdose of Ibuprofen, and admitted in Psych unit for intentional overdose, and depression. Patient states that her last episode of asthma exacerbation was on October this year, treated with oral steroids. Since then she has not used her albuterol inhaler. Reports she usually gets her asthma symptoms during winter season. Denies chest pain, SOB, wheezing, cough, fevers, chills, abdominal pain , urinary symptoms or other symptoms at this evaluation. PMHx: Intermittent Asthma FH: Mother: alive: h/o Asthma, Father: alive: healthy Allergies:Lobster/hives Shx: Appendectomy/2009 Social: Never smoker, ETOH occasional/social, denies illicit drugs Review of Systems - Review of Systems All systems: reviewed and no additional remarkable complaints except (as per HPI ) Past Patient History - Infectious Disease Hx of Infectious Diseases: None - Past Social History Alcohol: None Drugs: Denies - CARDIAC Hx Hypertension: No - PULMONARY Hx Asthma: Yes - NEUROLOGICAL HX Cerebrovascular Accident: No Hx Seizures: No - HEENT Hx HEENT Problems: No - RENAL Hx Chronic Kidney Disease: No - ENDOCRINE/METABOLIC Hx Endocrine Disorders: No - HEMATOLOGICAL/ONCOLOGICAL Hx Cancer: No Hx Human Immunodeficiency Virus (HIV): No - INTEGUMENTARY Hx Dermatological Problems: No - MUSCULOSKELETAL/RHEUMATOLOGICAL Hx Musculoskeletal Disorders: No - GASTROINTESTINAL Hx Gastrointestinal Disorders: No - GENITOURINARY/GYNECOLOGICAL Hx Sexually Transmitted Disorders: No - PSYCHIATRIC Hx Depression: No - SURGICAL HISTORY Hx Appendectomy: Yes - ANESTHESIA Hx Anesthesia: Yes Hx Anesthesia Reactions: No Meds Allergies/Adverse Reactions: Allergies Allergy/AdvReac Type Severity Reaction Status Date / Time crab Allergy RASH Verified 07/11/17 23:04 lobster Allergy RASH Uncoded 06/07/18 01:11 - Medications Medications: Current Medications Acetaminophen (Tylenol 325mg Tab) 650 mg PO Q4 PRN PRN Reason: Pain, moderate (4-7) Al Hydrox/Mg Hydrox/Simethicone (Maalox Plus 30 Ml) 30 ml PO Q4 PRN PRN Reason: Dyspepsia Albuterol Sulfate (Albuterol 0.083% Inhal Thuy (2.5 Mg/3 Ml) Ud) 2.5 mg INH RQ4 PRN PRN Reason: Shortness of Breath Escitalopram Oxalate (Lexapro) 10 mg PO DAILY KATINA Lorazepam (Ativan) 1 mg PO Q6 PRN PRN Reason: Anxiety/Agitation Prazosin HCl (Minipress) 1 mg PO HS KATINA Trazodone HCl (Desyrel) 50 mg PO HS PRN PRN Reason: insomnia Last Admin: 06/06/18 22:50 Dose: 50 mg Physical Exam - Constitutional Appears: Non-toxic, No Acute Distress - Head Exam Head Exam: ATRAUMATIC, NORMOCEPHALIC - Eye Exam Eye Exam: Normal appearance. absent: Scleral icterus - ENT Exam ENT Exam: Mucous Membranes Moist - Respiratory Exam Respiratory Exam: Clear to Auscultation Bilateral, NORMAL BREATHING PATTERN. absent: Chest Wall Tenderness, Rales, Rhonchi, Wheezes, Respiratory Distress, Stridor - Cardiovascular Exam Cardiovascular Exam: REGULAR RHYTHM, RRR, +S1, +S2 - GI/Abdominal Exam GI & Abdominal Exam: Normal Bowel Sounds, Soft. absent: Distended, Guarding, Rebound, Rigid, Tenderness Additional comments: obese - Extremities Exam Extremities exam: Positive for: normal inspection. Negative for: calf tenderness, pedal edema - Neurological Exam Neurological exam: Alert, CN II-XII Intact, Normal Gait, Oriented x3 - Skin Skin Exam: Dry, Intact, Normal Color Results - Vital Signs Recent Vital Signs: Last Vital Signs Temp 97.7 F 06/07/18 09:18 Pulse 69 06/07/18 09:18 Resp 18 06/07/18 09:18 BP 109/62 06/07/18 09:18 Pulse Ox 100 06/06/18 23:07 - Labs Result Diagrams: 06/06/18 15:38 06/06/18 15:38 Labs: Laboratory Results - last 24 hr 06/06/18 06/06/18 06/06/18 15:33 15:38 15:38 WBC RBC Hgb Hct MCV MCH MCHC RDW Plt Count MPV Neut % (Auto) Lymph % (Auto) [place] % (Auto) Eos % (Auto) Baso % (Auto) Neut # (Auto) Lymph # (Auto) [place] # (Auto) Eos # (Auto) Baso # (Auto) PT INR APTT Sodium 139 Potassium 4.2 Chloride 106 Carbon Dioxide 21 L Anion Gap 16 BUN 11 Creatinine 0.6 L Est GFR ( Amer) > 60 Est GFR (Non-Af Amer) > 60 POC Glucose (mg/dL) 74 Random Glucose 85 Hemoglobin A1c Calcium 9.4 Total Bilirubin 0.6 AST 65 H ALT 92 H D Alkaline Phosphatase 61 Total Protein 8.5 H Albumin 4.4 Globulin 4.1 H Albumin/Globulin Ratio 1.1 Triglycerides Cholesterol LDL Cholesterol Direct HDL Cholesterol Lipase 131 Thyroxine (T4) TSH 3rd Generation Salicylates < 1.0 Urine Opiates Screen Urine Methadone Screen Acetaminophen < 10.0 L Ur Barbiturates Screen Ur Phencyclidine Scrn Ur Amphetamines Screen U Benzodiazepines Scrn U Oth Cocaine Metabols U Cannabinoids Screen Alcohol, Quantitative < 10 06/06/18 06/06/18 06/06/18 15:38 15:38 15:38 WBC 8.7 RBC 5.06 Hgb 14.9 D Hct 43.0 MCV 85.0 MCH 29.3 MCHC 34.5 RDW 13.5 Plt Count 264 MPV 9.7 Neut % (Auto) 55.3 Lymph % (Auto) 36.0 [place] % (Auto) 6.9 Eos % (Auto) 1.4 Baso % (Auto) 0.4 Neut # (Auto) 4.8 Lymph # (Auto) 3.1 [place] # (Auto) 0.6 Eos # (Auto) 0.1 Baso # (Auto) 0.0 PT 13.5 H INR 1.2 APTT 45.2 H Sodium Potassium Chloride Carbon Dioxide Anion Gap BUN Creatinine Est GFR ( Amer) Est GFR (Non-Af Amer) POC Glucose (mg/dL) Random Glucose Hemoglobin A1c Calcium Total Bilirubin AST ALT Alkaline Phosphatase Total Protein Albumin Globulin Albumin/Globulin Ratio Triglycerides Cholesterol LDL Cholesterol Direct HDL Cholesterol Lipase Thyroxine (T4) TSH 3rd Generation Salicylates Urine Opiates Screen Negative Urine Methadone Screen Negative Acetaminophen Ur Barbiturates Screen Negative Ur Phencyclidine Scrn Negative Ur Amphetamines Screen Negative U Benzodiazepines Scrn Negative U Oth Cocaine Metabols Negative U Cannabinoids Screen Negative Alcohol, Quantitative 06/07/18 06/07/18 07:30 07:30 WBC RBC Hgb Hct MCV MCH MCHC RDW Plt Count MPV Neut % (Auto) Lymph % (Auto) [place] % (Auto) Eos % (Auto) Baso % (Auto) Neut # (Auto) Lymph # (Auto) [place] # (Auto) Eos # (Auto) Baso # (Auto) PT INR APTT Sodium Potassium Chloride Carbon Dioxide Anion Gap BUN Creatinine Est GFR ( Amer) Est GFR (Non-Af Amer) POC Glucose (mg/dL) Random Glucose Hemoglobin A1c 5.4 Calcium Total Bilirubin AST ALT Alkaline Phosphatase Total Protein Albumin Globulin Albumin/Globulin Ratio Triglycerides 150 H Cholesterol 156 LDL Cholesterol Direct 85 HDL Cholesterol 46 Lipase Thyroxine (T4) 10.9 TSH 3rd Generation 1.80 Salicylates Urine Opiates Screen Urine Methadone Screen Acetaminophen Ur Barbiturates Screen Ur Phencyclidine Scrn Ur Amphetamines Screen U Benzodiazepines Scrn U Oth Cocaine Metabols U Cannabinoids Screen Alcohol, Quantitative Assessment & Plan - Assessment and Plan (Free Text) Assessment: 23 y/o F with PMHx of Intermittent Asthma admitted in Psych unit due to intentional Ibuprofen overdose, and depression. Plan: Intentional overdose -managed by Psychiatrist Depression -managed by Psychiatrist Intermittent Asthma -controlled -asymptomatic -Albuterol inh 0.083 % Q4H PRN DVT prophylaxis Ambulating - Date & Time Date: 06/07/18 Time: 13:40 <Zeina Watson - Last Filed: 06/08/18 17:59> Meds - Medications Medications: Current Medications Acetaminophen (Tylenol 325mg Tab) 650 mg PO Q4 PRN PRN Reason: Pain, moderate (4-7) Al Hydrox/Mg Hydrox/Simethicone (Maalox Plus 30 Ml) 30 ml PO Q4 PRN PRN Reason: Dyspepsia Albuterol Sulfate (Albuterol 0.083% Inhal Thuy (2.5 Mg/3 Ml) Ud) 2.5 mg INH RQ4 PRN PRN Reason: Shortness of Breath Escitalopram Oxalate (Lexapro) 10 mg PO DAILY KATINA Last Admin: 06/08/18 09:55 Dose: 10 mg Lorazepam (Ativan) 1 mg PO Q6 PRN PRN Reason: Anxiety/Agitation Prazosin HCl (Minipress) 1 mg PO HS KATINA Last Admin: 06/07/18 21:23 Dose: Not Given Trazodone HCl (Desyrel) 50 mg PO HS PRN PRN Reason: insomnia Last Admin: 06/07/18 21:23 Dose: 50 mg Results - Vital Signs Recent Vital Signs: Last Vital Signs Temp 97.3 F L 09/05/18 09:32 Pulse 76 06/08/18 09:32 Resp 18 06/08/18 09:32 BP 120/67 06/08/18 09:32 Pulse Ox 100 06/06/18 23:07 - Labs Result Diagrams: 06/06/18 15:38 06/06/18 15:38 Attending/Attestation - Attestation I have personally seen and examined this patient.: Yes I have fully participated in the care of the patient.: Yes I have reviewed all pertinent clinical information: Yes Notes (Text): 06/08/18 17:59 Seen, examined, and discussed with resident. Agree with findings and plan as above.
--- NOTE | 2018-06-08 14:41 | PCM.PYCHPN ---
Psychiatric Progress Note - Psychiatric Progress Note Patient seen today, length of contact: pt evaluated discussed with team chart reviewed Patient Chief Complaint: I feel remorseful for my children Problems Identified/Issues Discussed: pt evaluated with treatment team, presenting with sad mood and tearful affect, reported feeling remorseful for what she did as she has two children, discussed with pt the need to be in therapy for dealing with her childhood trauma and PTSD symptoms, discussed increasing the dose of lexapro pt reported improved sleep with prazosin, no reported side effects encouraged pt to attend groups, pt denied any current thoughts of self harm , perceptual disturbances Medical Problems: hx of post depression, no formal treatment DSM 5 Symptoms Update: post traumatic stress disorder adjustment disorder with depressed mood Medication Change: Yes (increase lexapro) Medical Record Reviewed: Yes Mental Status Examination - Cognitive Function Orientation: Person, Place, Situation Memory: Intact Attention: WNL Concentration: WNL Association: WNL Fund of Knowledge: [facility] Decription of patient's judgement and insights: partial insight , fair judgment, poor impulse control - Mood Mood: Depressed, Anxious - Affect Affect: Constricted, Depressed - Speech Speech: Soft - Formal Thought Process Formal Thought Process: No Impairment Psychotic Thoughts and Behaviors: pt denied psychotic symptoms, non elicited - Suicidal Ideation Suicidal Ideation: No - Homicidal Ideation Homicidal Ideation: No Goal/Treatment Plan - Goal/Treatment Plan Need for Continued Stay: Severe depression anxiety, Discharge may exacerbated symptoms Progress Toward Problem(s) and Goals/Treatment Plan: increase lexapro 10mg daily, prazosin for night mills increase gradually CBT group and supportive therapy referral to interpersonal therapy on discharge
[2018-06-09 09:38] VITALS: BP 108/70; PULSE 80; TEMP 97.2
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
== END 2018-06-09 12:09 | disposition home or self-care (01) | DRG 426 ==
LOC: H.ER 14:52 → H.ERHOLD 20:12 → H.PSYCH 21:54
PROVIDERS: ADMIT Psychiatry & Neurology Psychiatry; ATTEND Psychiatry & Neurology Psychiatry
PROC: GZHZZZZ Group Psychotherapy (ICD-10-PCS; principal; 2018-06-06)
PROC: GZ58ZZZ Individual Psychotherapy, Cognitive-Behavioral (ICD-10-PCS; 2018-06-06)
DX: F43.21 Adjustment disorder with depressed mood (principal); F43.10 Post-traumatic stress disorder, unspecified; F41.0 Panic disorder [episodic paroxysmal anxiety]; G47.00 Insomnia, unspecified; Z62.810 Personal history of physical and sexual abuse in childhood; Z91.5 Personal history of self-harm; J45.20 Mild intermittent asthma, uncomplicated